=== PATIENT | male | born 1955 | race Caucasian/White ===

== ENCOUNTER 2017-12-30 07:01 | Observation (INO) | payer OTHER ==
[2017-12-30] VITALS (11 sets, daily range): BP systolic 114–185; BP diastolic 64–85
[~2017-12-30] VITALS: Ht 167.6 cm; Wt 79.7 kg
--- NOTE | ~2017-12-30 | CATHLAB ---
[facility] [employer] [place] [address] INVASIVE PROCEDURE REPORT Name: SLAVA CURIEL Room #: 200-I DIS IN [facility]#: [id number] Admission: 12/30/17 Attend Phys: Mp Bess, Discharge: 12/31/17 Date of : 55 Date of Service: 12/31/17 1738 Report #: [id number] THIS REPORT FOR: //name// APPROVED REPORT Study performed: 12/30/2017 07:16:45 Patient Details Patient Status: Out-Patient Room #: The patient is a 62 year-old male Event Personnel Mp Bess Home Staging Specialist, Paul Hines RN, Supa, Tg Scrub, Barney Martinez Monitor, Barney Yadav Interventional Radiologist, Angie Coronado RTR, MATHIEU Scrub Procedures Performed Left Heart Cath w/or w/o Coronaries [id number] [facility] Aortogram Abdominal Peripheral Angio [id number] MEÑO RCA, Selective Right and Left Coronary Angiography Indication Chest pain Procedure Narrative The Right Groin^ was infiltrated with 1% Lidocaine subcutaneous anesthesia. A PINNACLE 6FR Sheath #[id number] sheath was inserted into the . Coronary angiography was performed using coronary diagnostic catheters. The right coronary system was accessed and visualized with a JR4 catheter. The left coronary system was accessed and visualized with a JL4 catheter. The left ventricle was accessed and visualized with a PIGTAIL catheter. Left ventriculogram was performed in 30 degree projection. An aortogram of the abdominal aorta was performed. Closure device was deployed with a 6 Fr 6F Fish closure. The patient tolerated the procedure well and there were no complications associated with the procedure. There was no hematoma. Intraoperative Conscious Sedation Sedation start time: 9.32 Case end Time: 10.16 Fentanyl 100 mcg Versed 6 mg Fluoro Time: 10.53 minutes Dose: DAP 7212 cGycm2 854 mGy [facility] [employer] [place] [address] INVASIVE PROCEDURE REPORT Name: VEENASLAVA WOODLAND Room #: 200-I [facility]#: [id number] Admission: 12/30/17 Attend Phys: Mp Bess, Discharge: 12/31/17 Date of : 55 Date of Service: 12/31/17 1738 Report #: [id number] Contrast Type and Amount: Omnipaque 160 ml Hemodynamics The aortic pressure is 219/91 mmHg with a mean of 108 mmHg. The left ventricular pressure is 183/5 mmHg with a mean of mmHg. The left ventricular end diastolic pressure is 24 mmHg. PCI Technique Lesion Percutaneous coronary intervention was performed on the proximal right coronary artery. A LAUNCHER 6FR 3D #[id number] Guide Catheter was used to engage the ostium. A Luge Wire .014 x 182CM #[id number] Interventional Guidewire was used to cross the lesion. BALLOON DILATION A Balloon catheter Sprinter OTW 2.5 x 12 #[id number] was inserted and inflated up to 18.00atm for 35seconds. STENT DEPLOYMENT A drug-eluting stent RESOLUTE JUSTICE OTW 3.0 X 8 #[id number] was inserted and inflated up to 17.00atm for 38seconds. POST STENT DEPLOYMENT BALLOON DILATION A Balloon catheter TREK NC RX 3.25 X 8 #[id number] was inserted and inflated up to 22.00atm for 31seconds. PCI Technique Lesion 2 Percutaneous Coronary Intervention was performed on the Ostial left renal. Conclusion #1 successful PTCA stent of ostial RCA lesion of 80-90% to 0% placement of a 30 by 8 On-X drug-eluting stent postdilated to 3.5 mm 0% residual BRE grade 3 flow previously stented vessel from proximal to distal segment remains minimally restenosis #2 left main free of disease giving rise to LAD and circumflex #3 LAD is moderately disease in the proximal mid vessel was somewhat attenuated 5060% in the segment preserved distal vessel relatively small in caliber #4 circumflex OM with moderate disease nondominant #5 normal left ventricular size and systolic function EF 55% #6 abdominal aorta is ectatic small aneurysm noted. Appears to be a high-grade lesion in the left renal artery. Will have Dr. Yadav addresses left renal artery Recommendations and plan continue aggressive risk factor modification [facility] [address] [place] [address] INVASIVE PROCEDURE REPORT Name: VEENASLAVA LEE Room #: 200-I [facility] IN M.R.#: [id number] Admission: 12/30/17 Attend Phys: Mp Bess, Discharge: 12/31/17 Date of : 55 Date of Service: 12/31/17 1738 Report #: [id number] dual antiplatelet therapy with newly placed RCA stent and left renal stent. To CCU in stable condition <ELECTRONICALLY SIGNED> By: Mp Bess MD, FACC 12/31/17 173 37 37 Mp Bess MD, FACC /INF
--- NOTE | ~2017-12-30 | EKG ---
[address] [address] ELECTROCARDIOGRAM REPORT Name: SLAVA CURIEL Room #: 200-I [facility] M.R.#: [id number] Admission: 12/30/17 Attend Phys: Mp Bess MD, Discharge: Date of : 55 Report #: [id number] THIS REPORT FOR: //name// [facility] Test Date: 2017-12-30 Test Time: 08:03:52 Pat Name: SLAVA CURIEL Department: Room: 200 Gender: M R D Internship: MONICO : 1955 Requested By: Mp Bess Order Number: [id number] MD: Shmuel Denny Measurements Intervals [place] Rate: 44 P: 43 ME: 139 QRS: 3 QRSD: 111 T: -21 QT: 471 QTc: 403 Interpretive Statements Sinus bradycardia Ventricular premature complex Probable left ventricular hypertrophy Borderline T abnormalities, inferior leads Compared to ECG 08/05/2012 07:15:40 Myocardial infarct finding no longer present Possible ischemia no longer present T-wave abnormality still present Electronically Signed On 12-31-2017 9:00:28 CDT by Shmuel Denny [email or web address] <ELECTRONICALLY SIGNED> By: Shmuel Denny MD 12/31/17899 2 2 Shmuel Denny MD /EPI
--- NOTE | ~2017-12-30 | EKG ---
[address] [address] ELECTROCARDIOGRAM REPORT Name: SLAVA CURIEL FLAKITA Room #: 200-I [facility] M.R.#: [id number] Admission: 12/30/17 Attend Phys: Mp Bess MD, Discharge: Date of : 55 Report #: [id number] THIS REPORT FOR: //name// [facility] Test Date: 2017-12-31 Test Time: 08:15:57 Pat Name: SLAVA CURIEL Department: Room: 200 I Gender: M Yarn Spinner: Jason VERGARA : 1955 Requested By: Hilda Shelton Order Number: [id number] MD: Shmuel Denny Measurements Intervals [place] Rate: 54 P: 53 NV: 131 QRS: -3 QRSD: 106 T: 36 QT: 460 QTc: 436 Interpretive Statements Sinus rhythm Probable left ventricular hypertrophy Abnormal T, consider ischemia, lateral leads Baseline wander in lead(s) V1 Compared to ECG 08/05/2012 07:15:40 Electronically Signed On 12-31-2017 9:08:51 CDT by Shmuel Denny [email or web address] <ELECTRONICALLY SIGNED> By: Shmuel Denny MD 12/31/17907 4 4 Shmuel Denny MD /EPI
[~2017-12-30 07:01] MED LIST: ASPIRIN81 M2 PO; EFFIENT10 MG PO; LIPITOR20 MG PO; LOPRESSOR 50 MG50 M1 PO; ZESTRIL10 MG PO
[2017-12-30] MEDS ORDERED: LIPITOR80 MG PO (07:35)
[2017-12-30] MEDS ORDERED: TOPROL XL100 MG PO (07:36)
[2017-12-30] MEDS ORDERED: OMEPRAZOLE40 MG PO (07:37)
[2017-12-30] MEDS ORDERED: IRON325 PO (07:37)
[2017-12-30 07:38] LABS: HEMATOCRIT 43.4 % (42.0-52.0); HEMOGLOBIN 14.9 gm/dL (14.0-18.0); MCH 31.2 pg (26.0-34.0); MCHC 34.3 g/dL (28.0-37.0); MCV 90.8 fL (80.0-100.0); RBC 4.78 mil/uL (4.50-6.00); RDW 13.3 % (10.5-14.5); WBC 12.5 thou/uL (4.0-11.0)
[2017-12-30 07:50] LABS: CALCIUM 9.1 mg/dL (8.5-10.1); POTASSIUM 3.8 mmol/L (3.5-5.1)
[2017-12-31 00:19] VITALS: BP 156/73
[2017-12-31 04:45] VITALS: BP 148/78
[2017-12-31] MEDS ORDERED: LITE COAT ASPI325 MG PO (07:13)
[2017-12-31 08:05] LABS: HEMATOCRIT 43.8 % (42.0-52.0); MCH 30.8 pg (26.0-34.0); MCHC 34.1 g/dL (28.0-37.0); MCV 90.4 fL (80.0-100.0); RBC 4.85 mil/uL (4.50-6.00); RDW 13.6 % (10.5-14.5); WBC 15.3 thou/uL (4.0-11.0)
[2017-12-31 08:22] LABS: ANION GAP 8 mmol/L (7-16); BUN 12 mg/dL (7-18); CALCIUM 9.3 mg/dL (8.5-10.1); CHLORIDE 104 mmol/L (98-107); CO2 24 mmol/L (21-32); CREATININE 0.9 mg/dL (0.7-1.3); GLUCOSE 105 mg/dL (74-106); SODIUM 136 mmol/L (136-145); TROPONIN-I <0.06 ng/mL (<0.06)
[2017-12-31 09:24] VITALS: BP 168/91
== END 2017-12-31 10:05 | disposition home or self-care (01) ==
LOC: CATH 07:01 → 2N 12:17 → CATH 12:24 → 2N 12-31 10:05
PROVIDERS: Internal Medicine Cardiovascular Disease; Nurse Practitioner Adult Health
DX: I25.10 Atherosclerotic heart disease of native coronary artery without angina pectoris (principal); I70.1 Atherosclerosis of renal artery; I71.4 Abdominal aortic aneurysm, without rupture; I10 Essential (primary) hypertension; E78.00 Pure hypercholesterolemia, unspecified; I25.2 Old myocardial infarction; R93.1 Abnormal findings on diagnostic imaging of heart and coronary circulation; F17.210 Nicotine dependence, cigarettes, uncomplicated; Z72.89 Other problems related to lifestyle; Z98.890 Other specified postprocedural states; Z95.5 Presence of coronary angioplasty implant and graft; Z95.820 Peripheral vascular angioplasty status with implants and grafts; Z23 Encounter for immunization

== ENCOUNTER → 2020-02-16 | Outpatient (CLI) | payer BC ==
[~2020-02-16] MED LIST changes: +IRON325 PO; +LIPITOR80 MG PO; +LITE COAT ASPI325 MG PO; +OMEPRAZOLE40 MG PO; +TOPROL XL100 MG PO
== END ==
LOC: SJCVCIMAG 09:01
PROVIDERS: ATTEND Internal Medicine Cardiovascular Disease
DX: I65.23 Occlusion and stenosis of bilateral carotid arteries (principal); I71.4 Abdominal aortic aneurysm, without rupture; F17.200 Nicotine dependence, unspecified, uncomplicated

== ENCOUNTER 2021-02-12 08:45 | Observation (INO) | payer OTHER ==
[~2021-02-12] VITALS: Ht 167.6 cm; Wt 74.8 kg
[2021-02-12 09:17] VITALS: BP 149/82
[2021-02-12] MEDS ORDERED: ZETIA10 MG PO (09:49)
[2021-02-12 09:50] LABS: WBC 7.2 thou/uL (4.0-11.0)
[2021-02-12] MEDS ORDERED: NITROSTAT0.4 M1 SUBLING (09:50)
[2021-02-12] MEDS ORDERED: BENICAR40 MG PO (09:50)
[2021-02-12] MEDS ORDERED: NORVASC5 MG PO (09:50)
[2021-02-12 09:52] LABS: ABSOLUTE NEUTROPHILS 4.9 thou/uL (1.4-8.2); BASOPHILS 1.2 % (0.0-2.0); EOSINOPHILS 3.7 % (0.0-3.0); HEMATOCRIT 45.3 % (42.0-52.0); HEMOGLOBIN 15.1 gm/dL (14.0-18.0); LYMPHOCYTES 18.6 % (24.0-44.0); MCH 30.2 pg (26.0-34.0); MCHC 33.2 g/dL (28.0-37.0); MCV 90.9 fL (80.0-100.0); MONOCYTES 7.6 % (1.0-8.0); PLATELET COUNT 241 thou/uL (150-400); POLYS 68.9 % (36.0-66.0); RBC 4.99 mil/uL (4.50-6.00); RDW 13.6 % (10.5-14.5)
[2021-02-12 10:07] LABS: CREATININE 1.1 mg/dL (0.7-1.3); POTASSIUM 4.3 mmol/L (3.5-5.1)
[2021-02-12 16:22] VITALS: BP 161/81
[2021-02-12 19:39] VITALS: BP 149/85
[2021-02-12 23:43] VITALS: BP 165/82
[2021-02-13 03:36] LABS: HEMATOCRIT 46.1 % (42.0-52.0); HEMOGLOBIN 15.3 gm/dL (14.0-18.0); MCH 30.2 pg (26.0-34.0); MCHC 33.2 g/dL (28.0-37.0); MCV 90.9 fL (80.0-100.0); RBC 5.07 mil/uL (4.50-6.00); RDW 13.7 % (10.5-14.5); WBC 15.1 thou/uL (4.0-11.0)
[2021-02-13 03:39] VITALS: BP 189/98
[2021-02-13 04:46] LABS: ALBUMIN 3.8 g/dL (3.4-5.0); CALCIUM 9.1 mg/dL (8.5-10.1); CREATININE 0.9 mg/dL (0.7-1.3); POTASSIUM 4.1 mmol/L (3.5-5.1); TOTAL BILIRUBIN 1.3 mg/dL (0.2-1.0); TOTAL PROTEIN 7.4 g/dL (6.4-8.2)
[2021-02-13 04:57] VITALS: BP 149/91
[2021-02-13] MEDS ORDERED: BAYER CHEWABLE81 MG PO (07:50)
[2021-02-13 08:05] VITALS: BP 184/89
[2021-02-13 08:10] VITALS: BP 149/91
[2021-02-13 08:22] VITALS: BP 184/89
--- NOTE | 2021-02-13 09:12 | EKG ---
[address] [place] [address] ELECTROCARDIOGRAM REPORT Name: SLAVA CURIEL Room #: 219-P [facility] M.R.#: [id number] Admission: 02/12/21 Attend Phys: Barney Yadav MD Discharge: Date of : 55 Report #: [id number] [facility] Test Date: 2021-02-13 Test Time: 07:20:19 Pat Name: SLAVA CURIEL Department: Room: 219 P Gender: M Senior Animator: FSCHWALBE : 1955 Requested By: Hilda Thorne Order Number: [id number] MD: Glenn Galarza Measurements Intervals [place] Rate: 51 P: 53 NC: 138 QRS: 7 QRSD: 108 T: 264 QT: 444 QTc: 409 Interpretive Statements Sinus bradycardia Probable LVH with secondary repol abnrm Compared to ECG 12/31/2017 08:15:57 No significant change was found Electronically Signed On 02-13-2021 9:11:58 DIETARY AIDE by Glenn Galarza [email or web address] <ELECTRONICALLY SIGNED> By: Glenn Galarza MD, [facility] 02/13/2111 9 9 Glenn Galarza MD, FAC /EPI
[2021-02-13 11:41] LABS: ABSOLUTE NEUTROPHILS 10.7 thou/uL (1.4-8.2); BASOPHILS 0.9 % (0.0-2.0); EOSINOPHILS 0.7 % (0.0-3.0); HEMATOCRIT 47.3 % (42.0-52.0); HEMOGLOBIN 15.7 gm/dL (14.0-18.0); LYMPHOCYTES 11.6 % (24.0-44.0); MCH 30.3 pg (26.0-34.0); MCHC 33.1 g/dL (28.0-37.0); MCV 91.7 fL (80.0-100.0); MONOCYTES 8.5 % (1.0-8.0); PLATELET COUNT 273 thou/uL (150-400); POLYS 78.3 % (36.0-66.0); RBC 5.16 mil/uL (4.50-6.00); RDW 14.2 % (10.5-14.5); WBC 13.6 thou/uL (4.0-11.0)
[2021-02-13 11:57] LABS: APTT 29.4 Seconds (24.5-32.8); INR 1.03; PROTIME 11.2 Seconds (10.5-12.1)
[2021-02-13 11:58] LABS: URINE BILIRUBIN 2+ (Negative); URINE BLOOD NEGATIVE (Negative); URINE CLARITY CLEAR; URINE COLOR YELLOW; URINE GLUCOSE-RANDOM* NEGATIVE (Negative); URINE KETONES TRACE (Negative); URINE LEUKOCYTES-REFLEX NEGATIVE (Negative); URINE NITRITE-REFLEX NEGATIVE (Negative); URINE PROTEIN (DIPSTICK) NEGATIVE (Negative); URINE SPECIFIC GRAVITY >= 1.030 (1.005-1.035); URINE UROBILINOGEN 0.2 E.U./dl (0.2-1.0)
[2021-02-13 12:23] LABS: SQUAMOUS 4-10 Moderate /LPF (0-3)
[2021-02-13 12:24] LABS: HYALINE CASTS 4-10 Moderate /LPF (None Seen); URINE WBC-REFLEX 6-15 Few /HPF (0-5)
[2021-02-13 12:26] LABS: URINE RBC 1-2 Rare /HPF (NONE SEEN)
[2021-02-13 12:27] LABS: BACTERIA-REFLEX 1-9 Few /HPF (None Seen); CRYSTALS None Seen /LPF (None Seen)
--- NOTE | 2021-02-17 09:49 | CATHLAB ---
[facility] [employer] [place] [address] INVASIVE PROCEDURE REPORT Name: SLAVA CURIEL Room #: 219-P [facility] Farzana Arzola#: [id number] Admission: 02/12/21 Attend Phys: Barney Yadav MD Discharge: 02/13/21 Date of : 55 Report #: [id number] THIS REPORT FOR: cc: STACIA KLEIN FAMILY PHYSICIAN or PCP Mp Bess MD [facility] ~ APPROVED REPORT Study performed: 02/12/2021 13:00:09 Patient Details Patient Status: Out-Patient Room #: The patient is a 65 year-old male Event Personnel Mp Bess Station Engineer, Breana Cabrales RTR Monitor, Edward Ashley RTR Scrub, Angie Pappas RN RN, Irma Robbins RN in class special education teacher Performed Art Access - R femoral artery* Left Heart Cath w/or w/o Coronaries [id number] [facility] ME[address]O Place w/wo Plasty Single RCA 365556 Hemostasis w/ Mynx 96268 Initial Mod Sed Same Phys/QHP Gr5y 319131 00976 Mod Sed Same Phys/QHP Ea 491447 Procedure Narrative The was infiltrated with 1% Lidocaine subcutaneous anesthesia. A SHEATH BRITE-TIP 6F X 11CM (366465) sheath was inserted into the RFA^. Coronary angiography was performed using coronary diagnostic catheters. The right coronary system was accessed and visualized with a JR4 catheter. The left coronary system was accessed and visualized with a JL4 catheter. The left ventricle was accessed and visualized with a STRAIGHT PIGTAIL catheter. Left ventriculogram was performed in 30 degree projection. Closure device was deployed with a Fr MYNXGRIP 6/7F #[id number]. The patient tolerated the procedure well and there were no complications associated with the procedure. There was no hematoma. Intraoperative Conscious Sedation Sedation start time: 11:57 Case end Time: 14:34 Fentanyl 200 mcg Versed 2 mg Sedation, fluoro totals, and contrast are a combined total of AAA workup and a heart cath. [facility] [address] [address] INVASIVE PROCEDURE REPORT Name: SLAVA CURIEL FLAKITA Room #: 219-P [facility] IN ..#: [id number] Admission: 02/12/21 Attend Phys: Barney Yadav, Discharge: 02/13/21 Date of : 55 Report #: [id number] Fluoro Time: 26.00 minutes Dose: DAP 69862.40 cGycm2 3260 mGy Contrast Type and Amount: Omnipaque 150 ml Hemodynamics The aortic pressure is 147/57 mmHg with a mean of 82 mmHg. The left ventricular pressure is 141/5 mmHg with a mean of mmHg. The left ventricular end diastolic pressure is 25 mmHg. PCI Technique Lesion 2 Percutaneous Coronary Intervention was performed on the proximal right coronary artery. A LAUNCHER 6FR 3DRC #805640 Guide Catheter was used to engage the ostium. A Luge Wire .014 x 182CM #[id number] Interventional Guidewire was used to cross the lesion. Balloon Dilation A Balloon catheter TREK NC OTW 3.25 X 8 was inserted and inflated up to 4.00atm for 8seconds. Additional Inflation: 12.00atm for 28seconds. Additional Inflation: 3.00atm for 8seconds. Additional Inflation: 3 larry for 10 seconds. A SPRINTER OTW 3.5 x 12 was inserted and inflated up to 20 larry for 74 seconds. Stent Deployment A drug-eluting stent RESOLUTE JORDON OTW 3.5 X 12 #[id number] was inserted and inflated up to 18.00atm for 33seconds. Post Stent Deployment Balloon Dilation A Balloon catheter TREK NC OTW 3.5 X 15 #[id number] was inserted and inflated up to 22.00atm for 35seconds. Additional Inflation: 22.00atm for 22seconds. PCI Technique Lesion 3 Percutaneous Coronary Intervention was performed on the mid right coronary artery. A LAUNCHER 6FR 3DRC #945295 Guide Catheter was used to engage the ostium. A Luge Wire .014 x 182CM #[id number] Interventional Guidewire was used to cross the lesion. Balloon Dilation A Balloon catheter Sprinter OTW 3.25 x 15 #[id number] was inserted and inflated up to 18.00atm for 41seconds. Additional Inflation: 18.00atm for 19seconds. Additional Inflation: 18.00atm for 30seconds. Conclusion #1 Successful PTCA stent of ostial and proximal in-stent restenosis [facility] [place] [address] INVASIVE PROCEDURE REPORT Name: SLAVA CURIEL Room #: 219-P [facility] IN M.R.#: [id number] Admission: 02/12/21 Attend Phys: Barney Yadav, Discharge: 02/13/21 Date of : 55 Report #: [id number] of the dominant right coronary artery 95% to 0% with placement of a 3.5 x 12 resolute Jordon postdilated 3.6 mm BRE grade III flow. #2 successful PTCA of in-stent restenosis in a proximal focal segment in the previously placed proximal RCA stent with a 3.25 balloon to 18 larry BRE grade III flow throughout this dominant vessel. #3 left main mildly disease giving rise to LAD and circumflex. #4 LAD with proximal calcification with mild irregularity to the apex. 30 to 40% mid vessel 1 segment of 50%. #5 circumflex OM nondominant but large OM widely patent small circumflex after that OM takeoff is a high-grade lesion although not amenable to intervention. This is also unchanged from prior exam. #6 normal left jugular size and systolic function EF 60% Recommendations and plan: Continue aggressive risk factor modification. Dual antiplatelet therapy will continue. Transfer to CCU to follow post coronary stent protocol. Patient will need repair of aortic aneurysm. Could entertain proceeding with that in 1 month. <ELECTRONICALLY SIGNED> By: Mp Bess MD, FACC 02/17/21947 7 7 Mp Bess MD, FACC /INF
== END 2021-02-13 11:59 | disposition home or self-care (01) ==
LOC: CATH 08:45 → 2N 16:10
PROVIDERS: Nurse Practitioner Adult Health; Surgery Vascular Surgery; ADMIT Nuclear Medicine Nuclear Cardiology; ATTEND Nuclear Medicine Nuclear Cardiology
DX: I25.10 Atherosclerotic heart disease of native coronary artery without angina pectoris (principal); Z20.822 Contact with and (suspected) exposure to COVID-19; I71.4 Abdominal aortic aneurysm, without rupture; I10 Essential (primary) hypertension; E78.5 Hyperlipidemia, unspecified; I70.1 Atherosclerosis of renal artery; I65.29 Occlusion and stenosis of unspecified carotid artery; E11.9 Type 2 diabetes mellitus without complications; Z79.82 Long term (current) use of aspirin; Z79.84 Long term (current) use of oral hypoglycemic drugs; Z79.899 Other long term (current) drug therapy

== ENCOUNTER → 2021-03-12 | Outpatient (CLI) | payer OTHER ==
[~2021-03-12] MED LIST changes: +BAYER CHEWABLE81 MG PO; +BENICAR40 MG PO; +NITROSTAT0.4 M1 SUBLING; +NORVASC5 MG PO; +ZETIA10 MG PO
== END ==
LOC: SJCVC 09:57
PROVIDERS: ATTEND Internal Medicine Cardiovascular Disease
DX: R94.31 Abnormal electrocardiogram [ECG] [EKG] (principal); I71.4 Abdominal aortic aneurysm, without rupture; I25.10 Atherosclerotic heart disease of native coronary artery without angina pectoris; I77.9 Disorder of arteries and arterioles, unspecified; G45.8 Other transient cerebral ischemic attacks and related syndromes; I10 Essential (primary) hypertension; D64.9 Anemia, unspecified; K21.9 Gastro-esophageal reflux disease without esophagitis; E78.5 Hyperlipidemia, unspecified; I70.1 Atherosclerosis of renal artery; E11.9 Type 2 diabetes mellitus without complications; Z95.5 Presence of coronary angioplasty implant and graft; Z87.891 Personal history of nicotine dependence; Z79.82 Long term (current) use of aspirin; Z79.899 Other long term (current) drug therapy

== ENCOUNTER → 2021-03-24 | Outpatient (CLI) | payer OTHER ==
[~2021-03-24] MED LIST changes: +ASPIRIN PO; +PRASUGREL HCL10 MG PO; +PROTONIX 20 MG20 MG PO
[2021-03-24 10:36] LABS: ABSOLUTE NEUTROPHILS 6.6 thou/uL (1.4-8.2); BASOPHILS 0.8 % (0.0-2.0); EOSINOPHILS 3.4 % (0.0-3.0); HEMATOCRIT 46.4 % (42.0-52.0); HEMOGLOBIN 15.2 gm/dL (14.0-18.0); MCH 29.7 pg (26.0-34.0); MCHC 32.8 g/dL (28.0-37.0); MCV 90.4 fL (80.0-100.0); MONOCYTES 7.3 % (1.0-8.0); PLATELET COUNT 222 thou/uL (150-400); POLYS 73.5 % (36.0-66.0); RBC 5.13 mil/uL (4.50-6.00); RDW 13.7 % (10.5-14.5)
[2021-03-24 10:38] LABS: URINE BILIRUBIN NEGATIVE (Negative); URINE BLOOD NEGATIVE (Negative); URINE CLARITY CLEAR; URINE COLOR YELLOW; URINE GLUCOSE-RANDOM* NEGATIVE (Negative); URINE KETONES NEGATIVE (Negative); URINE LEUKOCYTES-REFLEX NEGATIVE (Negative); URINE NITRITE-REFLEX NEGATIVE (Negative); URINE PROTEIN (DIPSTICK) NEGATIVE (Negative); URINE UROBILINOGEN 0.2 E.U./dl (0.2-1.0)
[2021-03-24 10:50] LABS: APTT 31.1 Seconds (24.5-32.8); INR 0.97; PROTIME 10.6 Seconds (10.5-12.1)
[2021-03-24 10:56] LABS: ALBUMIN 3.9 g/dL (3.4-5.0); CALCIUM 8.8 mg/dL (8.5-10.1); CREATININE 0.8 mg/dL (0.7-1.3); POTASSIUM 4.3 mmol/L (3.5-5.1); TOTAL BILIRUBIN 1.1 mg/dL (0.2-1.0)
== END ==
LOC: PAC 09:16
PROVIDERS: ATTEND Surgery Vascular Surgery
DX: Z01.818 Encounter for other preprocedural examination (principal); I71.4 Abdominal aortic aneurysm, without rupture

== ENCOUNTER 2021-04-03 08:26 | Inpatient (IN) | payer OTHER ==
[~2021-04-03] VITALS: Ht 167.6 cm; Wt 86.2 kg
[2021-04-18 10:59] VITALS: BP 141/88
[2021-04-18 17:53] VITALS: BP 125/58
--- NOTE | 2021-04-18 19:07 | NUR ---
PATIENT ARRIVED ON UNIT AT 1755. PATIENT'S BELONGINGS ACCOUNTED FOR. PACU NURSE INFORMED THIS RN THAT SHE WOULD NOTIFY PATIENT'S OF PATIENT'S ICU ROOM AND TRANSFER.
[2021-04-19] VITALS (10 sets, daily range): BP systolic 121–150; BP diastolic 53–63
[2021-04-19 04:02] LABS: HEMATOCRIT 37.4 % (42.0-52.0); HEMOGLOBIN 12.4 gm/dL (14.0-18.0); MCH 30.2 pg (26.0-34.0); MCHC 33.1 g/dL (28.0-37.0); MCV 91.2 fL (80.0-100.0); RBC 4.1 mil/uL (4.50-6.00); RDW 14.4 % (10.5-14.5); WBC 15.5 thou/uL (4.0-11.0)
[2021-04-19 04:14] LABS: CALCIUM 7.8 mg/dL (8.5-10.1); CREATININE 0.9 mg/dL (0.7-1.3); POTASSIUM 4.4 mmol/L (3.5-5.1)
--- NOTE | 2021-04-25 10:11 | O ---
[facility] [place] [address] OPERATIVE REPORT Name: SLAVA CURIEL Room #: 249-P [facility] IN M.R.#: [id number] Admission: 04/18/21 Attend Phys: Jose Luis Finn MD Discharge: 04/19/21 Date of : 55 Report #: [id number] THIS REPORT FOR: cc: STACIA KLEIN - Family physician unknown Jose Luis Finn MD ~ DATE OF SERVICE: 04/18/2021 PREOPERATIVE DIAGNOSIS: Abdominal aortic aneurysm. POSTOPERATIVE DIAGNOSIS: Abdominal aortic aneurysm. OPERATION: Stent graft implant for infrarenal abdominal aortic aneurysm with intraoperative arteriograms. SURGEONS: Dr. Jose Luis Finn and Dr. Barney Yadav. STONE SETTER APPRENTICE: MICHAEL Charles. ANESTHESIA: General. INDICATIONS: The patient is a 66-year-old with an infrarenal abdominal aortic aneurysm. The patient has a saccular component to this. FINDINGS AND TECHNIQUE: After general anesthesia was established, incisions were made in both groins to expose the common, deep and superficial femoral arteries, 10,000 units of heparin were given. On each side, the arterial needle was placed in the femoral artery followed by guidewire and 6 exchanged for the 6-Bangladeshi sheath. Through this sheath, the long J-wire was placed with an exchange catheter and then the stiff wires were placed. On each side, the 6-Bangladeshi sheath was exchanged for an introducer catheter with the 18-Bangladeshi on the right and the 12 on the left through a femoral artery transverse arteriotomy. Through the large sheath, a 34 x 14.5 x 14 conformable main component was placed. A visceral catheter was placed through the 12-Bangladeshi sheath to identify the lowest renal artery and use this as our landmark for deploying the main component. Satisfied with the landing zone of the main component, the contralateral gate was entered and good position within the contralateral gate was ascertained using the pigtail catheter and the spin technique. [facility] [address] [place] [address] OPERATIVE REPORT Name: SLAVA CURIEL FLAKITA Room #: 249-P [facility] IN M.R.#: [id number] Admission: 04/18/21 Attend Phys: Jose Luis Finn MD Discharge: 04/19/21 Date of : 55 Report #: [id number] The marked pigtail was used and an iliac arteriogram was taken to identify the hypogastric takeoff. An 18 x 9.5 limb was placed in the contralateral gate to land above the left hypogastric artery. Through the right side, a similar procedure was done using a 20 x 9.5 limb after the hypogastric takeoff was identified to extend the limb of the main component to the level of the hypogastric artery. With all of the devices in place, the compliant balloon was used to fully deploy all of the stent grafts beginning at the proximal landing zone with that the area of active fixation and extending down through the contralateral gate and in the iliac limbs on each side. When the limbs had been fully deployed, the marked pigtail catheter was placed to perform an arteriogram. Unfortunately, this showed a small type 1 leak at an area where the proximal graft had distended into a small saccular component below the renal arteries. With this information, a 32 x 4.5 aortic cuff was placed and deployed at the proximal landing zone. This cuff covered this area nicely and after it was fully deployed with a noncompliant balloon, a final arteriogram was taken that showed good position of all grafts and no evidence of endoleak. With this information, stiff wires were replaced as needed and the dilators were replaced and the sheaths. The sheaths were removed and then the stiff wires were removed. The transverse arteriotomies were closed and flow was reestablished. Protamine was given to reverse the heparin. Hemostasis was ascertained in all areas and the wounds were closed in layers. The patient was taken to the recovery area in good condition having tolerated the procedure well. All counts were reported as correct. <ELECTRONICALLY SIGNED> By: Jose Luis Finn MD 04/25/21 1011 0803 0824 Jose Luis Finn MD /nt
== END 2021-04-19 12:52 | disposition home or self-care (01) | DRG 269 ==
LOC: PRE → TBA 04-18 08:12 → PRE 04-18 12:39 → ICU 04-18 17:24
PROVIDERS: Physician Assistant; ADMIT Surgery Vascular Surgery; ATTEND Surgery Vascular Surgery
DX: I71.4 Abdominal aortic aneurysm, without rupture (principal); Z20.822 Contact with and (suspected) exposure to COVID-19; I25.10 Atherosclerotic heart disease of native coronary artery without angina pectoris; I10 Essential (primary) hypertension; E78.5 Hyperlipidemia, unspecified; K21.9 Gastro-esophageal reflux disease without esophagitis; I65.22 Occlusion and stenosis of left carotid artery; I70.1 Atherosclerosis of renal artery; Z79.82 Long term (current) use of aspirin; Z95.5 Presence of coronary angioplasty implant and graft; I25.2 Old myocardial infarction; Z79.899 Other long term (current) drug therapy
CPT/HCPCS: 10078; 47375; 48889; 50010; 50101; 50386; 50455; 52287; 54118; 56524; 56526; 56531; 56668; 56760; 57093; 62110; 62900; 65020; 65040; 65090; 70005